=== PATIENT | female | born 1950 | race African-American/Black ===

== ENCOUNTER 2016-09-01 11:59 | Emergency (ER) | payer OTHER ==
[~2016-09-01] VITALS: Ht 156.2 cm; Wt 73.5 kg
[~2016-09-01 11:59] MED LIST: BACT800T5 PO; LOPE2TAB3 PO; ZOFR4TAB3 SL; eye drops
[2016-09-01 12:05] VITALS: BP 157/98; PULSE 76; RESP 16; TEMP 98.6; O2SAT 98
--- NOTE | 2016-09-01 13:16 | PD ---
HPI Chief Complaint: Medical Clearance Time Seen by Provider: 13:11 Travel History International Travel<30 days: No Contact w/Intl Traveler<30days: No Traveled to known affect area: No History of Present Illness HPI 66-year-old female presents to the ED for evaluation of sinus congestion, clear rhinorrhea, nonproductive cough. Onset early last week. She states initially she had fevers and chills and body aches, resolved for 72 hours. She denies headache, chest pain, shortness of breath, abdominal pain, nausea, vomiting, dysuria. She was not evaluated by a doctor during this time. 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 She states that she is required to provide a doctor's note to return to work today. PFSH Past Medical History Medical History: Denies Significant Hx Hx Anticoagulant Therapy: Yes Heart Rhythm Problems: No Cardiac Catheterization: No Cardiovascular Problems: No High Cholesterol: No Congestive Heart Failure: No Diabetes: No Diminished Hearing: No Hypertension: No Immunizations Current: Yes Myocardial Infarction: No Influenza Vaccination: No PNEUMOCCOCAL Vaccine (Year): 1 ?: Not Menopausal: Yes Ovarian Cysts: Yes Past Surgical History Coronary Artery Bypass Graft: No Hysterectomy: Yes Family History Family Myocardial Infarction: Yes Family Hypercholesterolemia: Yes Social History Alcohol Use: No Tobacco Use: No (quit 30 yrs ago , smoked 1 ppd) Substance Use: No Allergies-Medications (Allergen,Severity, Reaction): Coded Allergies: Penicillin (Verified Allergy, Severe, ITCHING, 09/01/16) Aspirin (Verified Adverse Reaction, Severe, MILD GI UPSET, 09/01/16) *MDRO Multi-Drug Resistant Organism (Verified Adverse Reaction, Unknown, ) MRSA leg wound 02/2015. Reported Meds & Prescriptions Reported Meds & Active Scripts Active Fluticasone Nasal [place] 50 Mcg/Act Naspr 100 Mcg EACH NARE DAILY 30 Days 50 mcg/spray Cetirizine (Cetirizine HCl) 5 Mg Chew 5 Mg CHEW DAILY 30 Days Review of Systems Except as stated in HPI: all other systems reviewed are Neg Physical Exam Narrative GENERAL: Well-nourished, well-developed black female in no acute distress SKIN: Warm and dry. HEAD: Normocephalic. Atraumatic. EYES: No scleral icterus. No injection or drainage. PERRLA. EOMI. ENT: Pearly orozco tympanic membranes bilaterally. Nasal mucosa is moist, mildly erythematous. Oropharynx with mild posterior erythema. No edema or exudate. Uvula midline. Airway patent. NECK: Supple, trachea midline. No JVD or lymphadenopathy. CARDIOVASCULAR: Regular rate and rhythm without murmurs, gallops, or rubs. 2+ DP and radial pulses bilaterally. RESPIRATORY: Breath sounds clear and equal bilaterally. No accessory muscle use. GASTROINTESTINAL: Abdomen soft, non-tender, nondistended. + Bowel sounds MUSCULOSKELETAL: No cyanosis, or edema. Patient is ambulatory and moves extremities spontaneously. BACK: Nontender without obvious deformity. No CVA tenderness. Data Data Last Documented VS Vital Signs Date Time Temp Pulse Resp B/P Pulse Ox O2 Delivery O2 Flow Rate FiO2 09/01/16 12:16 16 09/01/16 12:05 98.6 76 157/98 98 MDM Medical Decision Making Medical Screen Exam Complete: Yes Emergency Medical Condition: Yes Differential Diagnosis Viral syndrome versus URI versus influenza versus seasonal allergies versus other Narrative Course 66-year-old female presents to the ED for evaluation of sinus congestion, clear rhinorrhea, nonproductive cough. Onset early last week. She states initially she had fevers and chills and body aches, resolved for 72 hours. She denies headache, chest pain, shortness of breath, abdominal pain, nausea, vomiting, dysuria. She was not evaluated by a doctor during this time. 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 Vitals reviewed. Physical exam reveals a pleasant black female in no acute distress. Nasal mucosa is moist and mildly erythematous bilaterally. There is mild posterior oropharyngeal erythema without edema or exudates. No lymphadenopathy. This is viral syndrome, I suspect there may be an allergic component assess well. Patient was prescribed cetirizine and fluticasone. She is instructed to take the medications as prescribed, follow up with the primary care provider. She was provided a note for return to work. She indicated understanding of the discharge instructions, is agreeable to plan of care. This patient is stable and discharged home. Diagnosis Primary Impression: Viral syndrome Referrals: Primary Care Physician Patient Instructions: General Instructions, Viral Syndrome (ED) Departure Forms: Tests/Procedures, Work Release Enter return to work date: Sep 01, 2016 Special Instructions: Patient may return to work with no restrictions. Additional Instructions: Rest, hydrate. Take cetirizine daily as prescribed. Flonase 2 puffs in each nostril every morning. Follow-up with primary care provider. Return to the ED for any urgent or emergent medical condition. Med/Other Pt SpecificInfo: Prescription(s) given Scripts Fluticasone Nasal [place] 50 Mcg/Act [id number] Mcg EACH NARE DAILY 30 Days Ref 0 50 mcg/spray Prov:Earnestine Rudd MD 09/01/16 Cetirizine 5 Mg Chew5 Mg CHEW DAILY 30 Days Ref 0 Prov:Earnestine Rudd MD 09/01/16 Disposition: 01 DISCHARGE HOME Condition: Stable Kayla Gonzalez Sep 01, 2016 13:16
[2016-09-01] MEDS ORDERED: FLUT50SP EACH NARE (13:17)
[2016-09-01] MEDS ORDERED: CETI5CHW CHEW (13:17)
== END 2016-09-01 13:26 | disposition home or self-care (01) ==
LOC: PHEFT 11:59
DX: B34.9 Viral infection, unspecified (principal)
CPT/HCPCS: 99283